=== PATIENT | male | born 2005 | race Caucasian/White ===

== ENCOUNTER 2025-02-23 13:29 | Outpatient (CLI) | payer BC, SELFPAY ==
--- NOTE | ~2025-02-23 | MR_ITS ---
MRI of the left knee Clinical history: Pain Technique: Coronal proton density and proton density-weighted images, sagittal proton-density and T2 fat-sat images, and axial proton-density fat-saturated images were acquired. Findings: Anterior and posterior cruciate ligaments are intact. Medial collateral ligament and the la teral collateral ligament complex are intact. Popliteus tendon is intact. Medial and lateral menisci are intact, without evidence of tear. There is extensive contusion of the lateral femoral condyle and lateral aspect of the distal femur. T here is additional extensive contusion centered probably at the medial patellar pole and also involvi ng the central patellar body inferiorly. Articular cartilage is preserved throughout the knee. There is probable minimal partial tearing at the patellar insertion of the medial patellar retinaculum. Distal quadriceps tendon and patellar tendon are intact. Large joint effusion present. Small Whatley cy st present. Impression: Extensive bone contusions at the lateral femoral condyle and medial/central patella are compatible wi th recent lateral patellar dislocation-relocation injury. No osteochondral lesion or fracture seen. P robable minimal partial tearing at the patellar insertion of the medial patellar retinaculum. Large joint effusion with small Whatley's cyst. Reviewed, dictated and finalized at location . Impression: Extensive bone contusions at the lateral femoral condyle and medial/central pat smiley are compatible with recent lateral patellar dislocation-relocation injury. No osteochondral lesion or fracture seen. Probable minimal partial tearing at the patellar insertion of the medial patellar retinaculum. Large joint effusion with small Whatley's cyst.
== END 2025-02-23 13:30 | disposition home or self-care (01) ==
LOC: MICIMG 13:32
PROVIDERS: PCP Orthopaedic Surgery; Visit Provider Orthopaedic Surgery
DX: S80.02XA Contusion of left knee, initial encounter (principal); S83.412A Sprain of medial collateral ligament of left knee, initial encounter; M25.462 Effusion, left knee; M71.22 Synovial cyst of popliteal space [Baker], left knee; X58.XXXA Exposure to other specified factors, initial encounter
CPT/HCPCS: 73721